=== PATIENT | male | born 1970 | race Caucasian/White ===

== ENCOUNTER 2025-10-16 18:16 | Emergency (ER) | payer BC, SELFPAY ==
[2025-10-16 18:24] VITALS: BP 109/81
--- NOTE | 2025-10-16 19:16 | ED.MUSCINJ ---
HPI-Injury
General
Chief Complaint: Fall
Source: patient
Exam Limitations: none
Time Seen by Provider: 10/16/25 19:08
History of Present Illness-Injury
Initial Injury comments:
55-year-old otherwise healthy male presents complaining of right flank pain he slipped and fell backwards landing on a hard yeti water bottle. He notes right flank pain with motion. Pain is severe. No chest pain or shortness of breath. No
urinary symptoms. No other complaints at this time
Phy Exam
Physical Exam
Physical Exam:
General: Well-appearing no apparent respiratory distress
HEENT: Normocephalic atraumatic
abdomen right flank tenderness no obvious ecchymosis. Lower chest wall slightly tender. The right lower abdomen is tender.
Extremities: No cyanosis
Skin warm
Injury Course
Orders/Labs/Results
Orders:
Orders
10/16/25 19:16
CT Abd/pelvis W Iv Cont Urgent
Comment:
Reason For Exam: fall, right flank pain
10/16/25 19:31
Complete Blood Count/With Diff Urgent
Comprehensive Metabolic Panel Urgent
10/16/25 21:25
Ketorolac [Toradol] 30 mg IV NOW STA
diazePAM [Valium Injection] 5 mg IV NOW STA
10/16/25 22:19
Oxycodone/Acetaminophen [Percocet 5/325] 1 tablet PO NOW STA
Abnormal Lab Results
10/16/25
19:31
MPV 11.4 H fL
(7.4-10.4)
Absolute Neuts (auto) 7.5 H 10^3/uL
(1.4-6.5)
Neutrophils % 80.3 H %
(42.2-75.2)
Lymphocytes % 13.0 L %
(20.5-51.1)
Glucose 107 H mg/dl
(70-99)
Total Bilirubin 2.0 H mg/dl
(0.2-1.3)
10/16/25 19:31
10/16/25 19:31
MDM/Problems Addressed
Differential Diagnosis Includes:
Patient with right flank pain after fall. Consider hematoma versus muscular contusion versus kidney injury versus rib fracture. Patient is significant discomfort however he declined pain medicine. CT ordered
*Pulse Oximetry
SaO2: 98
Oxygen Mode of Delivery: Room air
Patient hypoxic: no
*Critical Care Note
Total Time (30-74mins, 75-104mins- exclusive of procedures): Not Applicable
Update Note
Update Note:
CT demonstrates L1-L2 and L3 right transverse process fractures on the right he was ambulatory but with discomfort. He expresses desire to go home and will follow up.
ED Attending Note
-
Portions of this chart may have been created with voice recognition software.� Occasional wrong word or��sound alike� substitutions may have occurred due to the inherent limitations of voice recognition software.
Discharge Plan
Departure
Patient Disposition: Home (Routine Discharge)
Date of Disposition: 10/16/25
Time of Disposition: 22:20
Patient with high blood pressure during this ER visit?: No
Discharge Problem:
Fracture of transverse process of lumbar vertebra
Prescriptions:
New
oxycodone-acetaminophen [Percocet] 5-325 mg tablet
1 tab PO Q8H PRN (Reason: Pain) Qty: 10 0RF
ibuprofen 600 mg tablet
600 mg PO TID PRN (Reason: Pain) Qty: 20 0RF
diazepam [Valium] 5 mg tablet
5 mg PO TID PRN (Reason: spasm) Qty: 10 0RF
Referrals:
Kwadwo Rowley DO [Family Provider, Family Practice]
Shayla Reyes MD [Active, Neurosurgery]
Activity Restrictions/Additional Instructions:
With heavy lifting or twisting. Take medicine as directed. Follow-up with neurosurgery. Return if worse or
Interventions
Interventions:
*Risk Screen - Suicide (C-SSRS) Last Done: 10/16/25 18:24
ED-Musculoskeletal Assessment Last Done: 10/16/25 19:33
ED- Neurological Assessment Last Done: 10/16/25 19:33
ED-Skin Assessment Last Done: 10/16/25 19:33
Discharge Date and Time
Print Language: MAURITIAN
[2025-10-16 19:38] LABS: Hematocrit 39.0 % (39.0-52.0); Hemoglobin 13.9 g/dL (13.0-18.0); Mean Corp Hgb Conc. 35.6 g/dL (33.0-37.0); Mean Corpuscular Volume 82.5 fL (80.0-94.0); Nucleated Red Blood Cells % 0 % (-); Platelet Count 212 10^3/uL (130-400); Red Cell Dist. Width 14.1 % (11.5-14.5)
[2025-10-16 20:02] LABS: ALT (SGPT) 24 U/L (0-50); AST (SGOT) 26 U/L (17-59); Albumin 4.3 g/dl (3.5-5.0); Alkaline Phosphatase 54 U/L (38-126); Blood Urea Nitrogen 16 mg/dl (9-20); Calcium 9.1 mg/dl (8.4-10.2); Carbon Dioxide 27 mmol/L (22-30); Chloride 103 mmol/L (98-107); Glucose 107 mg/dl (70-99); Potassium 4.2 mmol/L (3.5-5.1); Sodium 135 mmol/L (135-145); Total Protein 6.7 g/dl (6.3-8.2); eGFR > 60.00
[2025-10-16] MEDS: TORADOL 30 MG IV (21:34)
[2025-10-16] MEDS: VALIUM INJECTION 5 MG IV (21:34)
[2025-10-16] MEDS: PERCOCET 5/325 1 TABLET PO (22:22)
[2025-10-16 22:50] VITALS: BP 135/77
== END 2025-10-16 22:52 | disposition home or self-care (01) ==
LOC: EMR 18:16
PROVIDERS: Physician Assistant; EMERGENCY PHYSICIAN Emergency Medicine; FAMILY PHYSICIAN Family Medicine
DX: S32.018A Other fracture of first lumbar vertebra, initial encounter for closed fracture (principal); S32.028A Other fracture of second lumbar vertebra, initial encounter for closed fracture; S32.038A Other fracture of third lumbar vertebra, initial encounter for closed fracture; W01.0XXA Fall on same level from slipping, tripping and stumbling without subsequent striking against object, initial encounter
CPT/HCPCS: 96374; 96375; 99284; 74177; 80053; 85025; Q9967